=== PATIENT | male | born 1965 | race Caucasian/White ===

== ENCOUNTER 2024-07-10 20:21 | Inpatient (IN) | payer MEDICAID, OTHER ==
[~2024-07-10] VITALS: Ht 167.6 cm; Wt 131.5 kg
[~2024-07-10 20:21] MED LIST: APIX5TAB MT; ASPI-1406 PO; DIGO250T79 MT; DILT240C91 MT; GLIP5TAB22 MT; LEVO-65 MT; METF-416 MT; METO-539 PO; MORP30TA66 PO; NICO-645 TP; OMEP20CA14 MT; OXYC-662 GT; POTA10CA93 PO; SENN-362 PO
[2024-07-10 20:54] VITALS: O2SAT 98
[2024-07-11 02:21] LABS: BASOPHILS % 1.3 % (0.0-2.0); EOSINOPHILS % 3.7 % (0.0-5.0); HEMATOCRIT. 35.7 % (42.0-52.0); HEMOGLOBIN. 11.6 g/dL (14.0-18.0); LYMPHOCYTES % 12.9 % (20.0-50.0); MEAN CORPUSCULAR HEMOGLOBIN 28.9 pg (28.0-32.0); MEAN CORPUSCULAR HGB CONC 32.4 g/dL (31.0-37.0); MEAN CORPUSCULAR VOLUME 89.2 fL (80.0-94.0); MEAN PLATELET VOLUME 8.8 fl (7.4-10.4); MONOCYTES % 7.4 % (2.0-8.0); NEUTROPHILS % 74.7 % (40.0-76.0); PLATELET 216 x1000/uL (130-400); RED CELL DISTRIBUTION WIDTH 17.2 % (11.6-14.6); WHITE BLOOD COUNT 7.8 x1000/uL (4.5-11.0)
[2024-07-11 02:30] LABS: CHLORIDE 113 mEq/L (98-107); POTASSIUM 3.8 mEq/L (3.5-5.1); SODIUM 142 mEq/L (136-145)
[2024-07-11 02:31] LABS: CALCIUM 9.1 mg/dL (8.7-10.4); CARBON DIOXIDE 21 mEq/L (21-32)
[2024-07-11 02:36] LABS: CREATININE 0.4 mg/dL (0.6-1.3); GLUCOSE 86 mg/dL (70-105); UREA NITROGEN BLOOD 18 mg/dL (9-23)
[2024-07-11 02:38] LABS: ALANINE AMINOTRANSFERASE < 7 IU/L (10-49); ALBUMIN 3.3 g/dL (3.2-4.8); BILIRUBIN TOTAL 0.4 mg/dL (0.1-1.0); PROTEIN TOTAL 5.1 g/dL (6.0-8.3)
[2024-07-11 02:43] LABS: ASPARTATE AMINOTRANSFERASE < 8 IU/L (<34)
[2024-07-11 03:24] LABS: CLARITY URINE TURBID (CLEAR); COLOR URINE ORANGE (YELLOW); GLUCOSE URINE NEGATIVE (NEGATIVE); KETONES URINE NEGATIVE (NEGATIVE); LEUKOCYTE ESTERASE URINE 2+ (NEGATIVE); NITRITE URINE NEGATIVE (NEGATIVE); OCCULT BLOOD URINE 2+ (NEGATIVE); PH URINE 5.5 (4.5-8.0); PROTEIN URINE 2+ (NEGATIVE); SPECIFIC GRAVITY URINE 1.026 (1.005-1.030)
[2024-07-11 03:56] LABS: SQUAMOUS EPITHELIAL CELL URINE NONE SEEN /lpf (RARE/1+)
[2024-07-11 03:57] LABS: WBC URINE TNTC /hpf (0-2)
[2024-07-11 03:58] LABS: RBC URINE 50-100 /hpf (0-2)
[2024-07-11 03:59] LABS: YEAST URINE 2+
[2024-07-11 04:01] LABS: CALCIUM OXALATE CRYSTALS URINE 1+ /lpf
[2024-07-11 04:03] LABS: BACTERIA URINE 1+
[2024-07-11] MEDS ORDERED: CEFTRIAXONE 1GM/50ML 50 ML IV ONE (04:45)
[2024-07-11] MEDS ORDERED: ACETAMINOPHEN 325MG TABLET PO PRN (09:00)
[2024-07-11] MEDS ORDERED: ONDANSETRON HCL 4MG/2ML INJ IV PRN (09:00)
[2024-07-11 10:41] VITALS: BP 117/76; PULSE 59; RESP 18; TEMP 36.5292
[2024-07-11 12:00] VITALS: BP 96/66; PULSE 95; RESP 18; TEMP 35.5584; O2SAT 93
[2024-07-11] MEDS: CEFTRIAXONE 1GM/50ML 50 ML IV SCH (13:43)
[2024-07-11 16:00] VITALS: BP 117/71; PULSE 64; RESP 18; TEMP 36.05844; O2SAT 96
[2024-07-11 20:00] VITALS: BP 121/72; PULSE 67; RESP 20; TEMP 36.55848; O2SAT 99
[2024-07-12] VITALS: BP 120/65; PULSE 69; RESP 18; TEMP 36.6696; O2SAT 99
[2024-07-12 04:20] VITALS: BP 118/87; PULSE 114; RESP 17; TEMP 36.3918; O2SAT 98
[2024-07-12 08:00] VITALS: BP 126/75; PULSE 62; RESP 18; TEMP 36.44736; O2SAT 98
[2024-07-12] MEDS ORDERED: HYDROCODONE/ACETAMINOPHEN 10/325MG TABLET PO PRN (08:00)
[2024-07-12] MEDS: HYDROCODONE/ACETAMINOPHEN 10/325MG TABLET PO NR (09:43)
[2024-07-12 12:00] VITALS: BP 104/71; PULSE 86; RESP 18; TEMP 36.61404; O2SAT 98
[2024-07-12 16:00] VITALS: BP 112/80; PULSE 57; RESP 16; TEMP 36.28068; O2SAT 95
[2024-07-12 17:10] VITALS: BP 112/80; PULSE 57; RESP 16; TEMP 36.28068; O2SAT 95
== END 2024-07-12 17:32 | disposition home health service (06) | DRG 466 ==
LOC: ER 20:21 → 5WST 07-11 05:08
PROVIDERS: ADMIT Internal Medicine; ATTEND Internal Medicine
DX: T83.091A Other mechanical complication of indwelling urethral catheter, initial encounter (principal); L89.154 Pressure ulcer of sacral region, stage 4; E11.9 Type 2 diabetes mellitus without complications; I10 Essential (primary) hypertension; N39.0 Urinary tract infection, site not specified; Y84.6 Urinary catheterization as the cause of abnormal reaction of the patient, or of later complication, without mention of misadventure at the time of the procedure; Z85.72 Personal history of non-Hodgkin lymphomas; Y92.89 Other specified places as the place of occurrence of the external cause
CPT/HCPCS: 36415; 74176; 80053; 81003; 85025; 87106; 93970; 99285; J0696